=== PATIENT | female | born 1965 | race Caucasian/White ===

== ENCOUNTER → 2017-09-27 | Outpatient (CLI) | payer BC, OTHER ==
[~2017-09-27] MED LIST: BACLOFEN 10MG T10 MG PO; INDERAL LA120 MG PO; LIDODERM1 EACH TP; LISINOPRIL5 MG PO; MONODOX100 MG PO; PROTONIX 40MG T40 MG PO; RELPAX40 MG PO; SUMATRIPTAN SUC50 M1 PO; TOPAMAX100 MG PO; TRAMADOL 50MG T50 M1 PO; ZIAC 2.5 MG-6.21 TAB PO; ZITHROMAX Z PA250 MG PO; Zofran4 MG PO
--- NOTE | 2017-09-27 18:59 | RADIOLOGY REPORT PS360 ---
FOOT-RT-3 VIEWS Ordering Physician: Paige Cortes APRN Patient Age: 52 years: Female HISTORY: R/O FB OVER 1ST MTP JOINT Fell on a [employer] [place] and large wood splinter removed. Still feels like foreign body present TECHNIQUE: 3 views right foot COMPARISON :None FINDINGS No fracture nor dislocation. Bones well mineralized. No radiopaque foreign body evident. . There is soft tissue swelling seen about the first MTP joint and medial foot. I do not see any definitive foreign body although a skin marker may be helpful to better focus the surgeon. However not seen with any certainty.. If symptoms persist ultrasound can be utilized to search for foreign bodies but results can be hit or mass.. IMPRESSION: . No radiopaque foreign body evident. Soft tissue swelling seen about the region of the first MTP joint and distal first metatarsal. Note comments in text Osseous structures intact
--- NOTE | 2017-09-27 18:59 | RADIOLOGY REPORT PS360 ---
"FOOT-RT-3 VIEWS Ordering Physician: Paige Cortes APRN Patient Age: 52 years: Female HISTORY: R/O FB OVER 1ST MTP JOINT Fell on a [employer] | [place]where [place] and large wood splinter removed. Still feels like foreign body present TECHNIQUE: 3 views right foot COMPARISON :None FINDINGS No fracture nor dislocation. Bones well mineralized. No radiopaque foreign body evident. . There is soft tissue swelling seen about the first MTP joint and medial foot. I do not see any definitive foreign body although a skin marker may be helpful to better focus the surgeon. However not seen with any certainty.. If symptoms persist ultrasound can be utilized to search for foreign bodies but results can be hit or mass.. IMPRESSION: . No radiopaque foreign body evident. Soft tissue swelling seen about the region of the first MTP joint and distal first metatarsal. Note comments in text Osseous structures intact"
== END ==
LOC: RAD 17:07
DX: M79.671 Pain in right foot (principal)